=== PATIENT | female | born 1955 | race Caucasian/White ===

== ENCOUNTER 2017-12-26 07:29 | Emergency (ER) | payer MEDICAID ==
[~2017-12-26] VITALS: Ht 165.1 cm; Wt 56.2 kg
[2017-12-26 07:39] VITALS: BP 161/100
--- NOTE | 2017-12-26 07:40 | NUR ---
LAB AT BEDSIDE.
--- NOTE | 2017-12-26 07:47 | NUR ---
62/F BIB DAUGHTER WITH C/O WOKE UP AT 0300 HOUR, WITH ALTERED MENTAL STATUS, SHAKING, WITH BS 407 MG/DL. PT'S DAUGHTER STATED " MY MOM ACTING WEIR. SHE CAME OUT FROM HER BEDROOM & HIT HER HEAD ON MY SON'S DOOR". DENIES N/V/D; SKIN OPEN TO LEFT SHOULDER MORE THAN A YEAR. AAOX4 WITH EVEN AND STEADY GAIT; LUNGS CLEAR BL; HR EVEN AND REGULAR; PT DENIES ANY FEVER, CP, SOB, OR COUGH AT THIS TIME; PATIENT STATES PAIN OF 0/10 AT THIS TIME. PATIENT POSITIONED FOR COMFORT; HOB ELEVATED; BEDRAILS UP X2; BED DOWN. ER MD MADE AWARE OF PT STATUS.
--- NOTE | 2017-12-26 07:47 | NUR ---
Note undone in EDM - 12/26/17 at 0816 by [email or web address] 62/F BIB DAUGHTER WITH C/O WOKE UP AT 0300 HOUR, WITH ALTERED MENTAL STATUS, SHAKING, WITH BS 407 MG/DL. PT'S DAUGHTER STATED " MY MOM ACTING WEIR. SHE CAME OUT FROM HER BEDROOM & HIT HER HEAD ON MY SON'S DOOR". DENIES N/V/D; SKIN IS PINK/WARM/DRY; AAOX4 WITH EVEN AND STEADY GAIT; LUNGS CLEAR BL; HR EVEN AND REGULAR; PT DENIES ANY FEVER, CP, SOB, OR COUGH AT THIS TIME; PATIENT STATES PAIN OF 0/10 AT THIS TIME. PATIENT POSITIONED FOR COMFORT; HOB ELEVATED; BEDRAILS UP X2; BED DOWN. ER MD MADE AWARE OF PT STATUS.
--- NOTE | 2017-12-26 07:47 | NUR ---
Patient ambulated to bed 2 with family. RN evaluating patient at bedside.
[2017-12-26] MEDS ORDERED: NACL 0.9% 500 ML IV ONE (07:48)
--- NOTE | 2017-12-26 07:48 | NUR ---
Dr. Peng evaluating patient at bedside.
[2017-12-26] MEDS ORDERED: cloNIDine 0.1 MG TAB PO ONE (07:50)
--- NOTE | 2017-12-26 08:10 | NUR ---
EKG AT BEDSIDE. Addendum: 12/26/17 at 0846 [facility] Amendment undone in EDM - 12/26/17 at 0848 by [email or web address] PT STATED" I FEEL DIZZY WHEN I LAY DOWN.
[2017-12-26 08:16] LABS: BASOPHILS % (AUTO) 0.4 % (0.0-2.0); EOSINOPHILS % (AUTO) 0.3 % (0.0-4.0); HEMATOCRIT 42.8 % (36-48); LYMPHOCYTES # (AUTO) 1.8 K/uL (2.5-16.5); LYMPHOCYTES % (AUTO) 14.7 % (20.5-51.1); MEAN CORPUSCULAR HEMOGLOBIN 30 pg (27-31); MEAN CORPUSCULAR HGB CONC 33 g/dL (33-37); MEAN CORPUSCULAR VOLUME 92.8 fL (80-94); MONOCYTES # (AUTO) 0.8 K/uL (0.8-1.0); MONOCYTES % (AUTO) 6.6 % (1.7-9.3); NEUTROPHILS # (AUTO) 9.6 K/uL (1.8-7.7); PLATELET COUNT (AUTO) 341 K/uL (140-450); RED BLOOD CELL COUNT(AUTO) 4.61 MIL/uL (4.20-5.40); RED CELL DISTRIBUTION WIDTH 14.4 % (11.6-13.7); WHITE BLOOD COUNT (AUTO) 12.3 K/uL (4.8-10.8)
[2017-12-26 08:18] LABS: APPEARANCE,URINE CLEAR (CLEAR); BILIRUBIN,URINE NEGATIVE (NEGATIVE); BLOOD, URINE 1+ (NEGATIVE); COLOR,URINE YELLOW (YELLOW); LEUKOCYTE ESTERASE ,URINE NEGATIVE (NEGATIVE); NITRITE, URINE NEGATIVE (NEGATIVE); PH,URINE 5.5 (5.0-9.0); UGLUCOSE 3+ (NEGATIVE)
--- NOTE | 2017-12-26 08:18 | NUR ---
X RAY AT BEDSIDE.
[2017-12-26 08:24] LABS: ACETONE, SERUM NEGATIVE (NEGATIVE)
[2017-12-26 08:30] LABS: RBC,URINE 0-5 (RARE) /HPF (0-5); WBC,URINE 0-5 (RARE) /HPF (0-5)
[2017-12-26 08:33] LABS: ALBUMIN 3.8 g/dL (3.4-5.0); ASPARTATE AMINOTRANSFERASE 16 U/L (15-37); CARBON DIOXIDE 28.8 mmol/L (21-32); CHLORIDE 104 mmol/L (98-107); GFR ARICAN-AMERICAN 73 mL/min (>90); POTASSIUM 3.8 mmol/L (3.5-5.1); SODIUM SERUM 143 mmol/L (136-145); TOTAL BILIRUBIN 0.4 mg/dL (0.0-1.0); UREA NITROGEN, BLOOD 13 mg/dL (7-18)
[2017-12-26 08:34] LABS: GLUCOSE 510 mg/dL (74-106)
--- NOTE | 2017-12-26 08:43 | NUR ---
Note undone in EDM - 12/26/17 at 0847 by [email or web address] 62/F MANJEET FROM HOME C/O SYNCOPE, SHE WOKE WITH DIZZINESS, VOMITED 2 TIMES THEN SYNCOPE,IV NS BOLUS GIVEN ENROUTE .BS AT HOME 70 MG% PER EMS. IV LAC 20G. DENIES N/V/D AT THIS TIME; SKIN IS PINK/WARM/DRY; AAOX4 WITH EVEN AND STEADY GAIT; LUNGS CLEAR BL; PT DENIES ANY FEVER, CP, SOB, OR COUGH AT THIS TIME; PATIENT STATES PAIN OF 0/10 AT THIS TIME. PATIENT POSITIONED FOR COMFORT; HOB ELEVATED; BEDRAILS UP X2; BED DOWN. ER MD MADE AWARE OF PT STATUS.
[2017-12-26] MEDS ORDERED: INSULIN REGULAR, HUMAN 100 UNIT/ML VIAL IVP ONE (08:45)
[2017-12-26 09:50] VITALS: BP 169/79
--- NOTE | 2017-12-26 09:52 | NUR ---
Patient discharged with BP 169/79; DENIES HEADACHE OR DIZZINESS AT THIS TIME; MD MADE AWARE. Written and verbal after care instructions given and explained. Patient verbalized understanding. Ambulatory with steady gait. All questions addressed prior to discharge. Advised to follow up with PMD.
== END 2017-12-26 09:52 | disposition home or self-care (01) ==
LOC: MED 07:29
DX: E11.65 Type 2 diabetes mellitus with hyperglycemia (principal); I10 Essential (primary) hypertension; F17.210 Nicotine dependence, cigarettes, uncomplicated
CPT/HCPCS: 36415; 71045; 80053; 81001; 81025; 82009; 82948; 85025; 93005; 99285; J1815; J7030